=== PATIENT | male | born 1965 | race Caucasian/White ===

== ENCOUNTER 2020-10-19 11:56 | Emergency (ER) | payer MEDICAID ==
[~2020-10-19] VITALS: Ht 177.8 cm; Wt 62.2 kg
[2020-10-19] MEDS ORDERED: MECLIZINE HCL 12.5 MG TABLET. PO ONE (12:15)
[2020-10-19] MEDS ORDERED: IV NORMAL SALINE 1000ML BAG 1,000 ML IV ONE (12:15)
--- NOTE | 2020-10-19 12:29 | RAD ---
Single view of the chest. 10/19/2020 12:11 PM Indication: Reason: dizziness / Spl. Instructions: / History: Comparison: None Findings: There is no focal consolidation. There is no pleural effusion or pneumothorax. Heart size i s normal. Postoperative changes. Impression: No evidence of acute cardiopulmonary process. IMPRESSION: No evidence of acute cardiopulmonary process Electronically signed by: Juan Alberto Ryder MD (10/19/2020 12:26 PM) [id number]
[2020-10-19 12:33] LABS: BASO # 0.1 x10^3/uL (0.0-0.2); BASO % 1 % (0-3); EOS # 0.1 x10^3/uL (0.0-0.7); EOS % 1 % (0-3); HEMATOCRIT 27.8 % (39.0-53.0); HEMOGLOBIN 9.6 g/dL (13.0-17.5); LYMPH # 1.8 x10^3/uL (1.0-4.8); LYMPH % 21 % (24-48); MEAN CORPUSCULAR HEMOGLOBIN 31 pg (25-35); MEAN CORPUSCULAR HGB CONC 34 g/dL (31-37); MEAN CORPUSCULAR VOLUME 89 fL (79-100); MONO # 0.9 x10^3/uL (0.0-1.1); MONO % 10 % (0-9); NEUT # 5.8 x10^3/uL (1.8-7.7); NEUT % 67 % (31-73); PLATELET COUNT 256 x10^3/uL (140-400); RED BLOOD COUNT 3.12 x10^6/uL (4.30-5.70); WHITE BLOOD COUNT 8.7 x10^3/uL (4.0-11.0)
--- NOTE | 2020-10-19 12:59 | EKG ---
[facility] [address] [place] [address] Test Date: 2020-10-19 Test Time: 12:02:00 Pat Name: JOE FERNANDEZ Department: Room: Gender: M Forepart Rounder: : 1965 Requested By: BONIFACIO PARSONS Order Number: [id number] Reading MD: Measurements Intervals [place] Rate: 102 P: 180 NV: 174 QRS: 104 QRSD: 74 T: 138 QT: 324 QTc: 426 Interpretive Statements SINUS TACHYCARDIA RIGHTWARD AXIS LOW LIMB LEAD VOLTAGE QRS(T) CONTOUR ABNORMALITY CONSISTENT WITH ANTEROSEPTAL INFARCT PROBABLY OLD CONSIDER HIGH LATERAL INFARCT ABNORMAL ECG RI6.01 No previous ECG available for comparison
[2020-10-19 13:09] LABS: CALCIUM 8.7 mg/dL (8.5-10.1); CREATININE 0.8 mg/dL (0.7-1.3); POTASSIUM 4.2 mmol/L (3.5-5.1)
[2020-10-19 13:12] LABS: ALBUMIN 2.7 g/dL (3.4-5.0); ALBUMIN/GLOBULIN RATIO 0.7 (1.0-1.7); MAGNESIUM 1.2 mg/dL (1.8-2.4); TOTAL BILIRUBIN 0.3 mg/dL (0.2-1.0); TOTAL PROTEIN 6.4 g/dL (6.4-8.2)
--- NOTE | 2020-10-19 13:18 | RAD ---
EXAMINATION: CT HEAD AND C-SPINE WO CLINICAL HISTORY: Dizziness, fall TECHNIQUE: Serial axial images without IV contrast were obtained from the vertex to the foramen magnum. CT of the cervical spine without IV contrast. Spiral, high resolution axial images were obtained from the skull base to the cervicothoracic junction with sagittal and coronal planar reconstructions. CT Dose Reduction Employed: One or more of the following individualized dose reduction techniques wer e utilized for this examination: 1. Automated exposure control 2. Adjustment of the mA and/or kV ac cording to patient size 3. Use of iterative reconstruction technique. COMPARISON: None FINDINGS: BRAIN: Acute Change: No evidence of an acute contusion or other acute parenchymal process. Hemorrhage: No evidence of acute intracranial hemorrhage. Mass Lesion/Mass Effect: No evidence of intracranial mass or extraaxial fluid collection. No signific ant mass effect. Chronic Change: Scattered patchy foci of hypoattenuation in the supratentorial white matter, nonspeci fic but likely represents mild microvascular ischemia. Atherosclerotic calcification of the bilateral carotid siphons. Parenchyma: Mild generalized volume loss. Ventricles: Ventricular enlargement concordant with degree of parenchymal volume loss. Paranasal Sinuses and Skull Base: Partially visualized near complete opacification of the right maxil med sinus with with increased attenuation in the sinus contents, most likely related to paranasal si nus disease but this is incompletely evaluated and blood products related to a nondisplaced fracture is not entirely excluded. No evidence of acute calvarial fracture. C-SPINE: Alignment: Straightening to slight reversal of the normal cervical lordosis, possibly positional. Osseous Structures: No evidence of acute fracture. Grade 1 C4-5 anterolisthesis, likely degenerative. Degenerative Changes: Moderate to severe multilevel degenerative disc disease, greatest at C6-7. Mode rate to severe multilevel neural foraminal narrowing, greatest at C3-4. Osseous osseous spinal stenos is in the lower cervical spine, greatest at C6-7. Multilevel facet arthropathy. Atlantodental degener ative changes. Cervical Soft Tissues: No prevertebral soft tissue swelling. Vascular calcifications. IMPRESSION: BRAIN: No evidence of acute intracranial abnormality. Partially visualized opacification of the right maxillary sinus as described, incompletely evaluated. C-SPINE: No evidence of acute osseous abnormality involving the cervical spine. Multilevel degenerative findings as described. Electronically signed by: Owen Wing DO (10/19/2020 1:16 PM) [facility]
--- NOTE | 2020-10-19 15:27 | RAD ---
EXAM: XR HIP (WITH OR WITHOUT PELVIS) RIGHT 1 VIEW 10/19/2020 2:45 PM CLINICAL INDICATION: Fall, pain COMPARISON: None TECHNIQUE: AP view of the pelvis and frog-leg lateral view of the right hip. FINDINGS: No acute fracture. Alignment is normal. There is mild degenerative joint disease of the hi ps. Pubic symphysis and sacroiliac joints are unremarkable. There is severe right facet arthrosis at L5-S1. IMPRESSION: No acute osseous abnormality of the right hip. Electronically signed by: Twyla Reyes MD (10/19/2020 3:24 PM) [id number]
--- NOTE | 2020-10-19 16:57 | PHYS DOC ---
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 Patient states he is currently at the [facility] because he is homeless, he states got dizzy, fell and hit his head on a wall. Patient d enies any loss of consciousness, EMS reports his blood pressure was 76/50 on arrival to the scene, he was given IV fluids, blood pressure came up. Patient states he had an episode of nausea and vomiting after the incident. Denies any chest pain or shortness of breath. He states last week he was seen at [facility] for dizziness but he states he had faked the event so that he gets admitted because he was homeless. Patient is also complaining of mild intermittent right hip pain after falling. States the pain is worse on touching his right hip. 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 [] Eyes: Denies change in visual acuity. [] HENT: Denies nasal congestion or sore throat. [] Respiratory: Denies cough or shortness of breath. [] Cardiovascular: Denies chest pain or edema. [] GI: Reports nausea and vomiting denies abdominal pain, bloody stools or diarrhea. [] : Denies dysuria. [] Musculoskeletal: Reports right hip pain. Denies back pain Integument: Denies rash. [] Neurologic: Reports dizziness, syncope. Denies headache, focal weakness or s ensory changes. [] Psychiatric: Denies depression or anxiety. [] (BONIFACIO PARSONS Morena [employer] M[employer] OPERATOR) Heart Score: C/O Chest Pain: N/A Risk Factors: Risk Factors: DM, Current or recent (<one month) smoker, HTN, HLP, family history of CAD, obesity. Risk Scores: Score 0 - 3: 2.5% MACE over next 6 weeks - Discharge Home Score 4 - 6: 20.3% MACE over next 6 weeks - Admit for Clinical Observation Score 7 - 10: 72.7% MACE over next 6 weeks - Early Invasive Strategies (BONIFACIO PARSONS C[employer] M[employer] OPERATOR) Current Medications: Current Medications Medications (Trade) Dose Ordered Sig/Tracey Start Time Stop Time Status Last Admin Dose Admin Meclizine HCl (Antivert) 12.5 mg 1X ONCE 10/19/20 12:15 10/19/20 12:21 DC 10/19/20 12:41 12.5 MG Sodium Chloride 1,000 ml @ 1,000 mls/hr 1X ONCE 10/19/20 12:15 10/19/20 13:14 DC 10/19/20 12:41 1,000 MLS/HR (BONIFACIO PARSONS C[employer] OPERATOR) Allergies: Allergies: Allergies Coded Allergies Type Severity Reaction Last Updated Verified No Known Drug Allergies 10/19/20 No (BONIFACIO PARSONS C[employer] OPERATOR) Physical Exam: PE: Constitutional: Well developed, well nourished, no acute distress, non-toxic appearance. [] HENT: Normocephalic, atraumatic, bilateral external ears normal, oropharynx moist, no oral exudates, nose normal. [] Eyes: PERRLA, EOMI, conjunctiva normal, no discharge. [] Neck: Normal range of motion, no tenderness, supple, no stridor. [] Cardiovascular:Heart rate regular rhythm, no murmur [] Lungs & Thorax: Bilateral breath sounds clear to auscultation [] Abdomen: Bowel sounds normal, soft, no tenderness, no masses, no pulsatile masses. [] Skin: Warm, dry, no erythema, no rash. [] Back: No tenderness, no CVA tenderness. [] Extremities: No tenderness, no cyanosis, no clubbing, ROM intact, no edema. [] Neurologic: Alert and oriented X 3, normal motor function, normal sensory function, no focal deficits noted. [] Psychologic: Affect normal, judgement normal, mood normal. [] (BONIFACIO PARSONS C[employer] M[employer] OPERATOR) Current Patient Data: Labs: Laboratory Tests Test 10/19/20 12:24 10/19/20 12:46 10/19/20 15:15 White Blood Count 8.7 x10^3/uL (4.0-11.0) Red Blood Count 3.12 x10^6/uL (4.30-5.70) L Hemoglobin 9.6 g/dL (13.0-17.5) L Hematocrit 27.8 % (39.0-53.0) L Mean Corpuscular Volume 89 fL (79-100) Mean Corpuscular Hemoglobin 31 pg (25-35) Mean Corpuscular Hemoglobin Concent 34 g/dL (31-37) Red Cell Distribution Width 14.0 % (11.5-14.5) Platelet Count 256 x10^3/uL (140-400) Neutrophils (%) (Auto) 67 % (31-73) Lymphocytes (%) (Auto) 21 % (24-48) L Monocytes (%) (Auto) 10 % (0-9) H Eosinophils (%) (Auto) 1 % (0-3) Basophils (%) (Auto) 1 % (0-3) Neutrophils # (Auto) 5.8 x10^3/uL (1.8-7.7) Lymphocytes # (Auto) 1.8 x10^3/uL (1.0-4.8) Monocytes # (Auto) 0.9 x10^3/uL (0.0-1.1) Eosinophils # (Auto) 0.1 x10^3/uL (0.0-0.7) Basophils # (Auto) 0.1 x10^3/uL (0.0-0.2) Sodium Level 140 mmol/L (136-145) Potassium Level 4.2 mmol/L (3.5-5.1) Chloride Level 104 mmol/L (98-107) Carbon Dioxide Level 29 mmol/L (21-32) Anion Gap 7 (6-14) Blood Urea Nitrogen 20 mg/dL (8-26) Creatinine 0.8 mg/dL (0.7-1.3) Estimated GFR (Cockcroft-Gault) 100.0 BUN/Creatinine Ratio 25 (6-20) H Glucose Level 131 mg/dL (70-99) H Calcium Level 8.7 mg/dL (8.5-10.1) Magnesium Level 1.2 mg/dL (1.8-2.4) L Total Bilirubin 0.3 mg/dL (0.2-1.0) Aspartate Amino Transferase (AST) 31 U/L (15-37) Alanine Aminotransferase (ALT) 52 U/L (16-63) Alkaline Phosphatase 82 U/L (46-116) Troponin I Quantitative < 0.017 ng/mL (0.000-0.055) < 0.017 ng/mL (0.000-0.055) KK-Xot-X-Type Natriuretic Peptide 142 pg/mL (0-124) H Total Protein 6.4 g/dL (6.4-8.2) Albumin 2.7 g/dL (3.4-5.0) L Albumin/Globulin Ratio 0.7 (1.0-1.7) L Lipase 138 U/L (73-393) Thyroid Stimulating Hormone (TSH) 1.245 uIU/mL (0.358-3.74) SARS-CoV-2 Antigen (Rapid) Negative (NEGATIVE) Laboratory Tests 10/19/20 12:24 Laboratory Tests 10/19/20 12:24 Vital Signs: Vital Signs Date Time Temp Pulse Resp B/P (MAP) Pulse Ox O2 Delivery O2 Flow Rate FiO2 10/19/20 11:56 98.1 77 17 119/79 (92) 94 Room Air 98.1 (BONIFACIO PARSONS C[employer] M[employer]ER OPERATOR) EKG: EK interpreted by Dr. Salamanca sinus tachycardia HR 102 no STEMI [] (BONIFACIO PARSONS APRN) Radiology/Procedures: Radiology/Procedures: []PROCEDURE: CT HEAD AND CERVICAL SPINE WO EXAMINATION: CT HEAD AND C-SPINE WO CLINICAL HISTORY: Dizziness, fall TECHNIQUE: Serial axial images without IV contrast were obtained from the vertex to the foramen magnum. CT of the cervical spine without IV contrast. Spiral, high resolution axial images were obtained from the skull base to the cervicothoracic junction with sagittal and coronal planar reconstructions. CT Dose Reduction Employed: One or more of the following individualized dose reduction techniques were utilized for this examination: 1. Automated exposure control 2. Adjustment of the mA and/or kV according to patient size 3. Use of iterative reconstruction technique. COMPARISON: None FINDINGS: BRAIN: Acute Change: No evidence of an acute contusion or other acute parenchymal process. Hemorrhage: No evidence of acute intracranial hemorrhage. Mass Lesion/Mass Effect: No evidence of intracranial mass or extraaxial fluid collection. No significant mass effect. Chronic Change: Scattered patchy foci of hypoattenuation in the supratentorial white matter, nonspecific but likely represents mild microvascular ischemia. Atherosclerotic calcification of the bilateral carotid siphons. Parenchyma: Mild generalized volume loss. Ventricles: Ventricular enlargement concordant with degree of parenchymal volume loss. Paranasal Sinuses and Skull Base: Partially visualized near complete opa cification of the right maxillary sinus with with increased attenuation in the sinus contents, most likely related to paranasal sinus disease but this is incompletely evaluated and blood products related to a nondisplaced fracture is not entirely excluded. No evidence of acute calvarial fracture. C-SPINE: Alignment: Straightening to slight reversal of the normal cervical lordosis, possibly positional. Osseous Structures: No evidence of acute fracture. Grade 1 C4-5 anterolisthesis, likely degenerative. Degenerative Changes: Moderate to severe multilevel degenerative disc disease, greatest at C6-7. Moderate to severe multilevel neural foraminal narrowing, greatest at C3-4. Osseous osseous spinal stenosis in the lower cervical spine, greatest at C6-7. Multilevel facet arthropathy. Atlantodental degenerative changes. Cervical Soft Tissues: No prevertebral soft tissue swelling. Vascular calcifications. IMPRESSION: BRAIN: No evidence of acute intracranial abnormality. Partially visualized opacification of the right maxillary sinus as described, incompletely evaluated. C-SPINE: No evidence of acute osseous abnormality involving the cervical spine. Multilevel degenerative findings as described. Electronically signed by: Owen Perrin DO (10/19/2020 1:16 PM) [facility] DICTATED and SIGNED BY: OWEN PERRIN DO DATE: 10/19/20 [id number] PROCEDURE: PORTABLE CHEST 1V Single view of the chest. 10/19/2020 12:11 PM Indication: Reason: dizziness / Spl. Instructions: / History: Comparison: None Findings: There is no focal consolidation. There is no pleural effusion or pneumothorax. Heart size is normal. Postoperative changes. Impression: No evidence of acute cardiopulmonary process. IMPRESSION: No evidence of acute cardiopulmonary process Electronically signed by: Juan Alberto Solorzano MD (10/19/2020 12:26 PM) [id number] DICTATED and SIGNED BY: JUAN ALBERTO SOLORZANO MD DATE: 10/19/20 [id number] (BONIFACIO PARSONS APRN) Course & Med Decision Making: Course & Med Decision Making Pertinent Labs and Imaging studies reviewed. (See chart for details) This is a 55-year-old male patient presenting from [facility] after having a syncope episode. Blood pressure was 76/50 when they picked him up at the [facility]. He was given IV fluids. BP on arrival was 119/79 with a heart rate of 77. Patient is complaining of right hip pain. CT of the head and cervical spine are negative for any acute findings. Chest x-ray is negative, CBC with a normal WBC, hemoglobin 9.6 with hematocrit of 27.8. Patient states he has has been told before his red blood count was low right hip x-rays including pelvis are negative for any acute findings. Patient was discharged back to [facility]. Follow-up with his own PCP next week (BONIFACIO PARSONS APRN) Edita Disclaimer: Dragamee Disclaimer: This electronic medical record was generated, in whole or in part, using a voice recognition dictation system. (BONIFACIO PARSONS APRN) Departure Departure Impression: Primary Impression: Fall Qualified Codes: W19.XXXA - Unspecified fall, initial encounter Additional Impressions: Anemia Qualified Codes: D64.9 - Anemia, unspecified Contusion of right hip Qualified Codes: S70.01XA - Contusion of right hip, initial encounter Dizziness Disposition: HOME / SELF CARE / HOMELESS Condition: STABLE Referrals: NO PCP (PCP) followup with your doctor in one week Patient Instructions: Anemia, FAQs, Contusion, [id number], Fall Prevention and Home Safety Additional Instructions: You were evaluated after falling. Your hip x-rays are negative for any acute findings. You are anemic. Please follow-up with your primary care doctor. Try to change positions slowly. Come back to the ED at any point symptoms worsen Attending Signature Attending Signature I have reviewed the PA/POST FORM REMOVER's note and plan of care. I was available for consultation as needed during the patient's visit in the emergency department. I agree with the clinical impression, plan, and disposition. (DENNIS SALAMANCA DO) BONIFACIO PARSONS APRN Oct 19, 2020 16:57 DENNIS SALAMANCA DO Oct 19, 2020 18:29
[2020-10-19 17:20] VITALS: BP 125/92
--- NOTE | 2020-10-20 17:24 | NUR ---
IP: Attempted to contact pt concerning covid results. [facility]. Informed that I would have to call back on Friday to be able to reach this pt.
== END 2020-10-19 17:20 | disposition home or self-care (01) ==
LOC: ER 11:56
DX: S70.01XA Contusion of right hip, initial encounter (principal); D64.9 Anemia, unspecified; R42 Dizziness and giddiness; R11.2 Nausea with vomiting, unspecified; G89.29 Other chronic pain; Z20.822 Contact with and (suspected) exposure to COVID-19; Z59.0 Homelessness; W18.09XA Striking against other object with subsequent fall, initial encounter; Y93.89 Activity, other specified; Y92.89 Other specified places as the place of occurrence of the external cause; Y99.8 Other external cause status
CPT/HCPCS: 36415; 70450; 71045; 72125; 73501; 80053; 83690; 83735; 83880; 84443; 84484; 85025; 87426; 93005; 96360; 96361; 99285; J7030; J8597; U0003; U0005